=== PATIENT | female | born 1995 | race Caucasian/White ===

== ENCOUNTER 2021-12-13 20:05 | Inpatient (IN) | payer MEDICAID ==
[~2021-12-13] VITALS: Ht 154.9 cm; Wt 63.5 kg
[2021-12-13 20:53] LABS: HEMATOCRIT. 43.6 % (36.0-48.0); HEMOGLOBIN. 14.2 g/dL (12.0-16.0); MEAN CORPUSCULAR HEMOGLOBIN 28.5 pg (28.0-32.0); MEAN CORPUSCULAR VOLUME 87.8 fL (81.0-99.0); MEAN PLATELET VOLUME 8.7 fl (7.4-10.4); PLATELET 299 x1000/uL (130-400); RED BLOOD CELL COUNT 4.96 mill/uL (4.2-5.4); RED CELL DISTRIBUTION WIDTH 14.7 % (11.6-14.6)
[2021-12-13 20:56] LABS: CHLORIDE 103 mEq/L (98-107)
[2021-12-13 21:06] LABS: B-HCG QUANTITATIVE < 1 mIU/mL (<3)
[2021-12-13 21:12] LABS: PLATELET ESTIMATE NORMAL
[2021-12-13] MEDS ORDERED: VANCOMYCIN 1G PREMIX 200 ML IV ONE (21:15)
[2021-12-13] MEDS ORDERED: PIPERACILLIN/TAZ 3.375G PREMIX 50 ML IV ONE (21:15)
[2021-12-13] MEDS ORDERED: SODIUM CHLORIDE 0.9% 1000ML BAG (SEPSIS BOLUS) IV ONE (21:15)
[2021-12-13] MEDS ORDERED: FENTANYL CITRATE/PF 50MCG/ML 2ML VIAL IV ONE (22:00)
[2021-12-14] MEDS ORDERED: VANCOMYCIN 1G PREMIX 200 ML IV SCH (03:00)
[2021-12-14] MEDS ORDERED: NA PHOS,M-B/NA PHOS,DI-BA ENEMA 118ML PR ONE (04:00)
[2021-12-14] MEDS ORDERED: IOHEXOL-300 100 ML BOTTLE ONE (04:09)
[2021-12-14] MEDS ORDERED: KETOROLAC 15MG/ML VIAL IV ONE (04:30)
[2021-12-14] MEDS ORDERED: NA PHOS,M-B/NA PHOS,DI-BA ENEMA 118ML PR NR ×2 (09:00→12:00)
[2021-12-14] MEDS: SODIUM CHLORIDE 0.9% 1,000 ML IV SCH (11:45)
[2021-12-14] MEDS: ACETAMINOPHEN 650MG/20.3ML UDC PO PRN (11:54)
[2021-12-14] MEDS ORDERED: MIDAZOLAM HCL 5 MG/5 ML VIAL ONE (12:35)
[2021-12-14] MEDS ORDERED: FENTANYL CITRATE/PF 50MCG/ML 2ML VIAL ONE ×2 (12:35→13:47)
[2021-12-14] MEDS ORDERED: ACETAMINOPHEN 325MG TABLET PO PRN (13:30)
[2021-12-14] MEDS ORDERED: NALOXONE HCL 0.4MG/ML VIAL IV PRN (13:30)
[2021-12-14] MEDS ORDERED: IPRATROPIUM/ALBUTEROL 0.5-3(2.5)MG/3ML NEB HHN PRN (13:30)
[2021-12-14] MEDS ORDERED: CLONIDINE 0.1MG TABLET PO PRN (13:30)
[2021-12-14] MEDS ORDERED: LORAZEPAM 0.5MG TABLET PO PRN (13:30)
[2021-12-14] MEDS ORDERED: PROPOFOL 200MG/20ML VIAL IV ONE (13:43)
[2021-12-14] MEDS ORDERED: MIDAZOLAM HCL 2 MG/2 ML VIAL ONE (13:46)
[2021-12-14 16:38] LABS: HEMOGLOBIN. 14.9 g/dL (12.0-16.0); MEAN CORPUSCULAR HEMOGLOBIN 28.4 pg (28.0-32.0); MEAN CORPUSCULAR VOLUME 87.8 fL (81.0-99.0); MEAN PLATELET VOLUME 8.9 fl (7.4-10.4); PLATELET 232 x1000/uL (130-400); RED BLOOD CELL COUNT 5.25 mill/uL (4.2-5.4); RED CELL DISTRIBUTION WIDTH 14.5 % (11.6-14.6)
[2021-12-14 16:44] LABS: CHLORIDE 112 mEq/L (98-107)
[2021-12-14 16:49] LABS: INR 1.2; PROTHROMBIN TIME 13.1 sec (9.6-11.0)
[2021-12-14] MEDS: ACETAMINOPHEN 325MG TABLET PO PRN (20:00)
[2021-12-14 20:56] LABS: PLATELET ESTIMATE NORMAL
[2021-12-14] MEDS: ONDANSETRON HCL 4MG/2ML INJ IV PRN (23:31)
[2021-12-14] MEDS: MORPHINE SULFATE 2 MG/ML CPJ (NOT FOR IM USE) IV PRN (23:32)
[2021-12-15] MEDS: MORPHINE SULFATE 2 MG/ML CPJ (NOT FOR IM USE) IV PRN ×3 (02:03→14:53)
[2021-12-15] MEDS: ONDANSETRON HCL 4MG/2ML INJ IV PRN (02:03)
[2021-12-15 04:50] LABS: CHLORIDE 113 mEq/L (98-107); HEMATOCRIT. 35.9 % (36.0-48.0); HEMOGLOBIN. 11.8 g/dL (12.0-16.0); MEAN CORPUSCULAR HEMOGLOBIN 28.7 pg (28.0-32.0); MEAN CORPUSCULAR VOLUME 87.1 fL (81.0-99.0); MEAN PLATELET VOLUME 8.7 fl (7.4-10.4); PLATELET 229 x1000/uL (130-400); RED BLOOD CELL COUNT 4.12 mill/uL (4.2-5.4); RED CELL DISTRIBUTION WIDTH 14.4 % (11.6-14.6)
[2021-12-15] MEDS: SODIUM CHLORIDE 0.9% 1,000 ML IV SCH ×3 (07:45→18:31)
[2021-12-15] MEDS: ACETAMINOPHEN 650MG/20.3ML UDC PO PRN ×2 (10:33→19:12)
[2021-12-15 14:18] LABS: PLATELET ESTIMATE NORMAL
[2021-12-16] VITALS (8 sets, daily range): BP systolic 96–106; BP diastolic 49–65
[2021-12-16] MEDS: ACETAMINOPHEN 325MG TABLET PO PRN ×2 (01:56→09:51)
[2021-12-16] MEDS: SODIUM CHLORIDE 0.9% 1,000 ML IV SCH ×2 (03:45→18:06)
[2021-12-16] MEDS: MORPHINE SULFATE 2 MG/ML CPJ (NOT FOR IM USE) IV PRN ×2 (14:42→20:33)
[2021-12-16] MEDS ORDERED: GUAIFENESIN 200MG/10ML SUGAR FREE UDC PO ONE (18:15)
[2021-12-16] MEDS: GUAIFENESIN 200MG/10ML SUGAR FREE UDC PO PRN (18:29)
[2021-12-17] VITALS (12 sets, daily range): BP systolic 96–116; BP diastolic 57–71
[2021-12-17] MEDS: SODIUM CHLORIDE 0.9% 1,000 ML IV SCH (02:12)
[2021-12-17] MEDS: DEXT 5%/LACTATED RINGERS 1,000 ML IV SCH ×2 (05:30→18:00)
[2021-12-17 07:38] LABS: CHLORIDE 108 mEq/L (98-107)
[2021-12-17 07:43] LABS: BASOPHILS % 0.2 % (0.0-2.0); EOSINOPHILS % 0.7 % (0.0-5.0); HEMATOCRIT. 32.3 % (36.0-48.0); MEAN CORPUSCULAR HEMOGLOBIN 28.9 pg (28.0-32.0); MEAN CORPUSCULAR VOLUME 84.9 fL (81.0-99.0); MEAN PLATELET VOLUME 8.5 fl (7.4-10.4); MONOCYTES % 9.7 % (2.0-8.0); NEUTROPHILS % 75.4 % (40.0-76.0); PLATELET 191 x1000/uL (130-400); RED BLOOD CELL COUNT 3.81 mill/uL (4.2-5.4); RED CELL DISTRIBUTION WIDTH 14.4 % (11.6-14.6)
[2021-12-17] MEDS ORDERED: PIPERACILLIN/TAZOBACTAM 3.375 G in DEXTROSE 5% WATER 50 ML IV SCH (09:00)
[2021-12-17] MEDS: GUAIFENESIN 200MG/10ML SUGAR FREE UDC PO PRN (09:17)
[2021-12-17] MEDS ORDERED: IOHEXOL-300 100 ML BOTTLE ONE (10:33)
[2021-12-17] MEDS: FLUTICASONE PROPIONATE 50MCG/SPRAY BOTTLE BOTHNSTRLS SCH ×2 (10:38→20:44)
[2021-12-17] MEDS ORDERED: POTASSIUM CHLORIDE 20MEQ TABLET SR PO NR (10:45)
[2021-12-17] MEDS: MORPHINE SULFATE 2 MG/ML CPJ (NOT FOR IM USE) IV PRN ×2 (15:33→20:45)
[2021-12-17] MEDS: PIPERACILLIN/TAZOBACTAM 3.375 G in DEXTROSE 5% WATER 50 ML IV SCH (18:00)
[2021-12-18] VITALS (8 sets, daily range): BP systolic 95–110; BP diastolic 56–72
[2021-12-18] MEDS: PIPERACILLIN/TAZOBACTAM 3.375 G in DEXTROSE 5% WATER 50 ML IV SCH (05:12)
[2021-12-18 07:11] LABS: BASOPHILS % 0.4 % (0.0-2.0); EOSINOPHILS % 1.4 % (0.0-5.0); HEMATOCRIT. 32.5 % (36.0-48.0); HEMOGLOBIN. 11.5 g/dL (12.0-16.0); LYMPHOCYTES % 17.2 % (20.0-50.0); MEAN CORPUSCULAR HEMOGLOBIN 29.9 pg (28.0-32.0); MEAN CORPUSCULAR VOLUME 84.4 fL (81.0-99.0); MEAN PLATELET VOLUME 8.1 fl (7.4-10.4); MONOCYTES % 12.5 % (2.0-8.0); NEUTROPHILS % 68.5 % (40.0-76.0); PLATELET 214 x1000/uL (130-400); RED BLOOD CELL COUNT 3.85 mill/uL (4.2-5.4); RED CELL DISTRIBUTION WIDTH 14.5 % (11.6-14.6)
[2021-12-18 07:34] LABS: CHLORIDE 109 mEq/L (98-107)
[2021-12-18] MEDS: FLUTICASONE PROPIONATE 50MCG/SPRAY BOTTLE BOTHNSTRLS SCH (08:59)
[2021-12-18] MEDS: DEXT 5%/LACTATED RINGERS 1,000 ML IV SCH (09:47)
[2021-12-18] MEDS ORDERED: DOCU250C14 MT (10:28)
[2021-12-18] MEDS ORDERED: POLY17PO3 MT (10:28)
[2021-12-18] MEDS ORDERED: POTASSIUM CHLORIDE 20MEQ/PACKET PO NR (10:30)
[2021-12-18] MEDS ORDERED: CIPR-263 MT (10:31)
[2021-12-18] MEDS: ACETAMINOPHEN 325MG TABLET PO PRN (12:17)
[2021-12-19 19:09] LABS: NEISSERIA GONORRHOEAE NAA Negative (Negative)
== END 2021-12-18 14:26 | disposition home or self-care (01) | DRG 720 ==
LOC: ER 20:05 → MICUSO 12-14 02:59 → MICUNO 12-15 07:07 → ENRESERV 12-15 10:24 → MICUSO 12-15 10:25 → 3WST 12-16 09:08
PROVIDERS: ADMIT Internal Medicine; ATTEND Internal Medicine
PROC: 06H033Z Insertion of Infusion Device into Inferior Vena Cava, Percutaneous Approach (ICD-10-PCS; principal; 2021-12-13)
PROC: B549ZZA Ultrasonography of Inferior Vena Cava, Guidance (ICD-10-PCS; 2021-12-13)
PROC: 0DJD8ZZ Inspection of Lower Intestinal Tract, Via Natural or Artificial Opening Endoscopic (ICD-10-PCS; 2021-12-14)
DX: A41.9 Sepsis, unspecified organism (principal); R57.9 Shock, unspecified; E87.2 Acidosis; K56.2 Volvulus; R17 Unspecified jaundice; E86.0 Dehydration; N89.8 Other specified noninflammatory disorders of vagina; K63.89 Other specified diseases of intestine; K62.89 Other specified diseases of anus and rectum; E87.6 Hypokalemia; I10 Essential (primary) hypertension; Z20.822 Contact with and (suspected) exposure to COVID-19
CPT/HCPCS: 36415; 71045; 74018; 74177; 76830; 76856; 80048; 80053; 82270; 83605; 84145; 84702; 85025; 85044; 86850; 86900; 87015; 87045; 87210; 87426; 87427; 87449; 87491; 87591; 89055; 93005; 99291; J1885; J2250; J2270; J2405; J2543; J2704; J3010; J3370; J7030; J7040; J7060; J7121; Q9967

== ENCOUNTER 2023-03-15 23:59 | Emergency (ER) | payer MEDICAID ==
[~2023-03-15] VITALS: Ht 154.9 cm; Wt 48.0 kg
[~2023-03-15 23:59] MED LIST: CIPR-263 MT; DOCU250C14 MT; POLY17PO3 MT
[2023-03-16 00:51] LABS: BASOPHILS % 0.2 % (0.0-2.0); EOSINOPHILS % 0.3 % (0.0-5.0); HEMATOCRIT. 36.2 % (36.0-48.0); HEMOGLOBIN. 12.1 g/dL (12.0-16.0); LYMPHOCYTES % 8.1 % (20.0-50.0); MEAN CORPUSCULAR HEMOGLOBIN 29.4 pg (28.0-32.0); MEAN CORPUSCULAR VOLUME 88.2 fL (81.0-99.0); MEAN PLATELET VOLUME 8.2 fl (7.4-10.4); MONOCYTES % 3.5 % (2.0-8.0); NEUTROPHILS % 87.9 % (40.0-76.0); PLATELET 289 x1000/uL (130-400); RED BLOOD CELL COUNT 4.11 mill/uL (4.2-5.4); RED CELL DISTRIBUTION WIDTH 13.8 % (11.6-14.6)
[2023-03-16 01:10] LABS: HCG SCREEN NEGATIVE
[2023-03-16 01:26] LABS: CHLORIDE 104 mEq/L (98-107)
[2023-03-16] MEDS ORDERED: ACETAMINOPHEN 325MG TABLET PO ONE (06:45)
[2023-03-16 08:45] LABS: CLARITY URINE CLEAR (CLEAR); COLOR URINE YELLOW (YELLOW); PH URINE 6.5 (4.5-8.0); PROTEIN URINE NEGATIVE (NEGATIVE)
[2023-03-16 08:46] LABS: KETONES URINE 2+ (NEGATIVE); LEUKOCYTE ESTERASE URINE NEGATIVE (NEGATIVE); NITRITE URINE NEGATIVE (NEGATIVE); OCCULT BLOOD URINE 1+ (NEGATIVE); UROBILINOGEN URINE 0.2 E.U./dL (0.2-1.0)
[2023-03-16] MEDS ORDERED: TOPUD PO (09:05)
[2023-03-16 09:46] VITALS: BP 98/65
== END 2023-03-16 09:51 | disposition home or self-care (01) ==
LOC: ER 23:59
DX: R10.9 Unspecified abdominal pain (principal); R11.2 Nausea with vomiting, unspecified; R19.7 Diarrhea, unspecified
CPT/HCPCS: 36415; 80053; 81003; 81025; 83690; 84703; 85025; 99283; Z7610

== ENCOUNTER 2024-12-12 11:39 | Emergency (ER) | payer SELFPAY ==
[~2024-12-12] VITALS: Ht 154.9 cm; Wt 49.0 kg
[~2024-12-12 11:39] MED LIST changes: +TOPUD PO
[2024-12-12 11:50] VITALS: BP 110/75; PULSE 106; RESP 16; O2SAT 96
[2024-12-12 12:54] VITALS: TEMP 98.1
[2024-12-12] MEDS: ACETAMINOPHEN 325MG TABLET PO ONE (12:54)
[2024-12-12 14:11] LABS: CLARITY URINE CLOUDY (CLEAR); COLOR URINE DARK YELLOW (YELLOW); GLUCOSE URINE NEGATIVE (NEGATIVE); KETONES URINE TRACE (NEGATIVE); LEUKOCYTE ESTERASE URINE NEGATIVE (NEGATIVE); NITRITE URINE NEGATIVE (NEGATIVE); OCCULT BLOOD URINE NEGATIVE (NEGATIVE); PH URINE 5.5 (4.5-8.0); PROTEIN URINE TRACE (NEGATIVE); SPECIFIC GRAVITY URINE 1.024 (1.005-1.030)
[2024-12-12] MEDS ORDERED: ACET-2708 MT (14:30)
[2024-12-12] MEDS ORDERED: BROM118S47 PO (14:30)
[2024-12-12 14:41] LABS: BACTERIA URINE 4+; SQUAMOUS EPITHELIAL CELL URINE 3+ /lpf (RARE/1+); YEAST URINE NONE SEEN
== END 2024-12-12 15:34 | disposition home or self-care (01) ==
LOC: ER 11:42
DX: B34.9 Viral infection, unspecified (principal)
CPT/HCPCS: 71046; 81003; 81025; 87804; 99284